=== PATIENT | male | born 1955 | race Caucasian/White ===

== ENCOUNTER 2018-02-07 17:01 | Outpatient (CLI) | payer OTHER ==
[2018-02-07 17:35] LABS: Hemoglobin 14.3 g/dL (14.0-18.0); Mean Corpuscular HGB CONC 32.5 g/dL (32.0-36.0); Mean Corpuscular Hemoglobin 29.3 pg (27.0-31.0); Mean Platelet Volume 6.1 fL (7.4-10.4); Platelet Count 240 thou/uL (130-400); RBC Distribution Width 12.8 % (11.5-14.5); White Blood Cell (WBC) Count 9.9 thou/uL (4.8-10.8)
[2018-02-07 17:57] LABS: Anion Gap 14 mmol/L (10-20); BUN (Urea Nitrogen) 19 mg/dL (8.4-25.7); Calc. Creatinine Clearance 0 mL/min (70-130); Calcium 9.6 mg/dL (7.8-10.44); Carbon Dioxide 26 mmol/L (23-31); Chloride 101 mmol/L (98-107); Estimated GFR-MDRD 86; Glucose 105 mg/dL (80-115); Potassium 4.1 mmol/L (3.5-5.1); Sodium 137 mmol/L (136-145)
--- NOTE | 2018-02-08 14:34 | EKG ---
Test Reason : Blood Pressure : / mmHG Vent. Rate : 064 BPM Atrial Rate : 068 BPM P-R Int : 000 ms QRS Dur : 156 ms QT Int : 466 ms P-R-T Axes : 000 -89 008 degrees QTc Int : 480 ms Atrial fibrillation Left axis deviation Right bundle branch block Left ventricular hypertrophy with QRS widening Inferior infarct , age undetermined Anterior infarct , age undetermined Abnormal ECG When compared with ECG of 24-APR-1999 13:24, Atrial fibrillation has replaced Sinus rhythm Right bundle branch block is now Present Anterior infarct is now Present Inferior infarct is now Present Confirmed by DR. Rosa CAMPOVERDE ([id number]) on 02/08/2018 2:34:02 PM Referred By: JAYDA Confirmed By:DR. Rosa CAMPOVERDE
== END 2018-02-07 17:02 | disposition home or self-care (01) ==
LOC: LABBT 17:01
PROVIDERS: ATTEND Thoracic Surgery (Cardiothoracic Vascular Surgery)
DX: Z01.818 Encounter for other preprocedural examination (principal); I73.9 Peripheral vascular disease, unspecified
CPT/HCPCS: 80048; 85027; 86850; 86870; 86900; 86901; 86905; 86922; 93005; 93010

== ENCOUNTER 2018-02-08 05:54 | Observation (INO) | payer OTHER ==
[2018-02-07 17:07] VITALS: BMI 33.7
[2018-02-08] MEDS ORDERED: CEFAZOLIN/Water 2 GM/20 ML SYRINGE ONE (06:19)
[2018-02-08] MEDS ORDERED: Protamine Sulfate 50 MG/5 ML VIAL ONE (06:29)
[2018-02-08] MEDS ORDERED: Heparin 5,000 UNITS/ML VIAL ONE (06:29)
[2018-02-08] MEDS ORDERED: Fentanyl 250 MCG/5 ML VIAL ONE (07:06)
[2018-02-08] MEDS ORDERED: Midazolam HCl 2 mg/2 ml Vial ONE (07:11)
--- NOTE | 2018-02-08 12:43 | OP ---
DATE OF PROCEDURE: 02/08/2018 PREOPERATIVE DIAGNOSIS: Lifestyle limiting claudication, right leg. POSTOPERATIVE DIAGNOSIS: Lifestyle limiting claudication, right leg. PROCEDURE: Iliofemoral angiography and extended right common and profunda endarterectomy with bovine patch angioplasty. SURGEON: Dr. Radames Spain HOUSING MANAGER: Dr. Yonatan Simon ESTIMATED BLOOD LOSS: 100. FLUOROSCOPY: 1 minute 37 seconds. CONTRAST: 35 mL. PROCEDURE IN DETAIL: After prepping and draping in the usual sterile fashion an incision was made in the right groin after ultrasound localization of the femoral artery. The patient had a rock hard co mmon femoral artery with a soft spot just at the inguinal ligament where the medial circumflex vessel took off from the junction of the external iliac and common femoral artery. Extensive mobilization was carried out from there distally to about 2 cm from the origin of the SFA as well as the major pro jose branches. The calcification extended down the posterior wall of the profunda branches. Follow ing this, 7500 units of heparin were given, needle puncture of the common femoral artery at the ingui nal ligament, a 5-Uzbek dilator and sheath were placed. Retrograde angiography was initially perfor med showing no significant external or distal common iliac artery disease. The retrograde injection did not clearly show the common femoral artery and a Contra catheter was then advanced into the aorta and 3 separate images were obtained demonstrating with no significant or critical disease in the com mon iliac arteries. There was clearly calcified plaque, but flow appeared to be brisk. At that time , it was elected to just perform the common femoral artery endarterectomy and avoid stenting during t his procedure. Clamps were applied to the groin vessels and a long arteriotomy performed. There wer e two areas of near occlusive calcified plaque and a full endarterectomy was performed extending down about 2 cm onto the profunda femoral artery. Incision was made also onto the orifice of the superfi cial femoral artery. A bovine patch was then used to secure this vessel from the proximal extent of the common femoral arteriotomy down onto the tip of the profunda femoral arteriotomy. A separate pat ch was then used to patch the origin of the superficial femoral artery. Following completion of this , vessels were back flushed and forward flushed and the area thoroughly irrigated with heparin saline and flow then restored down the profunda and then superficial femoral artery. Following a prolonged period of FloSeal and compression with the partial reversal of the heparin, hemostasis was obtained. The wound was then closed in several layers with interrupted [id number] Vicryl sutures. Skin was then closed and the patient is to be taken to the recovery room in guarded condition.
[2018-02-08] MEDS ORDERED: Glycopyrrolate 0.2 MG/ML 5 ML SYRINGE ONE (13:45)
[2018-02-08] MEDS ORDERED: Lidocaine 1% PF 5 ML VIAL ONE (13:45)
[2018-02-08] MEDS ORDERED: Dexamethasone 20 MG/5 ML VIAL ONE (13:45)
[2018-02-08] MEDS ORDERED: PROPOFOL 200 MG/20 ML VIAL ONE (13:45)
[2018-02-08] MEDS ORDERED: PHENYLEPHRINE-NS 100 MCG/ML 10 ML SYRINGE ONE (13:45)
[2018-02-08] MEDS ORDERED: Heparin 10,000 UNITS/ 10 ML VIAL ONE (13:45)
[2018-02-08] MEDS ORDERED: ePHEDrine/0.9% NaCl/PF SYRINGE 50 mg/10 ml ONE (13:45)
[2018-02-08] MEDS ORDERED: Acetaminophen 325 MG TAB PO PRN (13:52)
[2018-02-08] MEDS ORDERED: Sodium Chloride 0.9% 1,000 ML IV SCH (13:52)
[2018-02-08] MEDS ORDERED: Promethazine HCl 25 MG/ML VIAL IM PRN (13:52)
[2018-02-08] MEDS ORDERED: HYDROcodone/Acetaminophen 5/325 mg Tablet PO PRN ×2 (13:52)
[2018-02-08] MEDS ORDERED: Ondansetron HCl/PF 4 MG/2 ML Vial IVP PRN (13:52)
[2018-02-08] MEDS ORDERED: Fentanyl 100 MCG/2 ML VIAL SLOW IVP PRN ×2 (13:52)
[2018-02-08] MEDS: CEFAZOLIN/Water 2 GM/20 ML SYRINGE SLOW IVP SCH ×2 (16:08→21:59)
[2018-02-08] MEDS ORDERED: LINAGLIPTIN PO SCH (17:00)
[2018-02-08] MEDS ORDERED: METFORMIN HCL PO SCH (17:00)
[2018-02-08] MEDS: Insulin Regular 300 UNITS/3 ML VIAL SC PRN ×2 (18:07→21:25)
[2018-02-08] MEDS ORDERED: Rosuvastatin 20 MG TAB PO SCH (21:00)
[2018-02-09] MEDS: CEFAZOLIN/Water 2 GM/20 ML SYRINGE SLOW IVP SCH (06:11)
--- NOTE | 2018-02-09 06:18 | DIS ---
HOSPITAL COURSE: The patient was admitted for a right femoral endarterectomy, which was performed. He underwent intraoperative angiography to assess his common iliac arteries and at the time of angiog yady, it was not felt that the stenosis was critical enough to warrant intervention at this time. P ostoperative course was uneventful and he will be discharged home on his admitting medications plus a prescription for Plavix 75 a day. Discharge and follow up instructions have been given.
[2018-02-09] MEDS ORDERED: metFORMIN 500 MG TAB PO SCH (08:00)
[2018-02-09 08:18] VITALS: BP 126/74; TEMP 98.9
[2018-02-09] MEDS ORDERED: Clopidogrel Bisulfate 75 MG TAB PO SCH (09:00)
[2018-02-09] MEDS ORDERED: Glimepiride 4 MG TAB PO SCH (09:00)
[2018-02-09] MEDS ORDERED: Valsartan 80 MG TAB PO SCH (21:00)
== END 2018-02-09 09:23 | disposition home or self-care (01) ==
LOC: SDC 05:54 → SURG A 12:40 → EDSTATUS 16:30
PROVIDERS: ADMIT Thoracic Surgery (Cardiothoracic Vascular Surgery); ATTEND Thoracic Surgery (Cardiothoracic Vascular Surgery)
PROC: 04CK0ZZ Extirpation of Matter from Right Femoral Artery, Open Approach (ICD-10-PCS; principal; 2018-02-09)
DX: I70.211 Atherosclerosis of native arteries of extremities with intermittent claudication, right leg (principal); I25.10 Atherosclerotic heart disease of native coronary artery without angina pectoris; E78.5 Hyperlipidemia, unspecified; E11.9 Type 2 diabetes mellitus without complications; Z88.5 Allergy status to narcotic agent; Z79.82 Long term (current) use of aspirin; Z79.84 Long term (current) use of oral hypoglycemic drugs
CPT/HCPCS: 36416; 76001; 96374; 96376; G0378; J1100; J1642; J1644; J2001; J2250; J2704; J2720; J3010

== ENCOUNTER 2018-10-20 18:57 | Day surgery (SDC) | payer OTHER ==
[~2018-10-20 18:57] MED LIST: Lidocaine 1% PF 5 ML VIAL ONE; PHENYLEPHRINE-NS 100 MCG/ML 10 ML SYRINGE ONE; PROPOFOL 200 MG/20 ML VIAL ONE
[2018-10-20] MEDS ORDERED: Bacitracin Zinc Ointment 30 gm TUBE ONE (19:05)
[2018-10-20] MEDS ORDERED: Sodium Chloride 0.9% 10 ML ONE (19:06)
[2018-10-20] MEDS ORDERED: Lidocaine 1% (PF) 30 ML VIAL ONE (19:11)
[2018-10-20] MEDS ORDERED: Bupivacaine PF 0.5% 30 ML VIAL ONE (19:11)
[2018-10-20] MEDS ORDERED: Thrombin 5000 UNITS/5 ML VIAL ONE (19:11)
[2018-10-20] MEDS ORDERED: Sodium Chloride 0.9% 20 ML ONE (19:44)
[2018-10-20] MEDS ORDERED: Fentanyl 100 MCG/2 ML VIAL ONE (19:56)
[2018-10-20] MEDS ORDERED: Midazolam HCl 2 mg/2 ml Vial ONE (19:56)
[2018-10-20] MEDS ORDERED: Vancomycin HCl 1.5 GM in Sodium Chloride 0.9% 250 ML 300 ML IVPB SCH (20:00)
[2018-10-20] MEDS ORDERED: CEFAZOLIN 2 GM/50 ML-DEXTROSE 2 GM in Premix Bag 1 BAG IVPB SCH (20:00)
[2018-10-20] MEDS ORDERED: Ketorolac Tromethamine 30 MG/ML VIAL ONE (21:02)
--- NOTE | 2018-10-21 08:42 | RAD ---
TWO VIEWS RIGHT FINGERS: DATE: 10/20/2018. PROVIDED CLINICAL HISTORY: Right finger biopsy. FINDINGS: Spot fluoroscopic images of the right long digit demonstrate ongoing operative changes involving the distal phalanx. IMPRESSION: As above. POS: OFF
--- NOTE | 2018-10-21 11:32 | OP ---
DATE OF PROCEDURE: 10/20/2018 PREOPERATIVE DIAGNOSIS: Osteomyelitis with abscess, gross infection, soft tissue and distal phalanx. POSTOPERATIVE DIAGNOSIS: Osteomyelitis with abscess, gross infection, soft tissue and distal phalanx, marked severe tip and proximal one-third osteomyelitis with soft tissue abscess around the bone. PROCEDURE PERFORMED: 1. Drainage of abscess, right middle finger distal phalanx. 2. Bone cortical resection for osteomyelitis distal phalanx, right middle finger. 3. Arthrotomy, distal interphalangeal joint with joint irrigation. 4. C-arm supervision. SPECIMENS: 1. Bone . 2. Cortical abscess for culture. 3. Skin wound for culture. 4. Bone specimen to pathology. TOURNIQUET TIME: 8 minutes. ESTIMATED BLOOD LOSS: 15 mL. INDICATION: The patient with an accidental injury to the same finger in May and then this well subsided, but approximately one month ago, noticed return of swelling at a different site, tip finger drainage over the last 3-4 days with fusiform swelling and erythema, prompted a visit to his primary care. We then performed radiographs and workup to determine probable osteomyelitis. He was transferred to our clinic today at the end of the day, where we found him to have at least subacute and chronic osteomyelitis, but he had an acute abscess which needed drainage, so we brought him to the hospital for emergent drainage of the abscess and at the same time we would deal with any bony changes now. DESCRIPTION OF PROCEDURE: After successful block, with a 15 mL of 0.5% Marcaine mix with 10 mL of 1% xylocaine, both with no epi, we performed successful block waiting 8 minutes after it was given before we starting the surgery. We outlined a periungual basil-digit incision on the radial side of the long finger and first they removed with the sinus tract, which was sent for culture. Next, we debrided the skin around the sinus tract and followed the tendons down deep where we debrided the synovitis including small hematoma. At this point, we visualized the bone from the same paramedian incision and it was grossly infected, with penciling of the cortex and so went inside the bone cortex to drain it as well as open the joint with a mini-arthrotomy and drain this as well. We irrigated the joint and the bone specifically separate and we were able to complete the debridement without complications. The patient then had the irrigation completed, we obtained hemostasis, put him in a bulky dressing, and the patient left the operating room without evidence of anesthetic complication. Job ID: [id number]
== END 2018-10-20 22:43 | disposition home or self-care (01) ==
LOC: SDC 18:57
PROVIDERS: ATTEND Orthopaedic Surgery Hand Surgery
PROC: 0PBT0ZZ Excision of Right Finger Phalanx, Open Approach (ICD-10-PCS; principal; 2018-10-20)
DX: E11.69 Type 2 diabetes mellitus with other specified complication (principal); M86.141 Other acute osteomyelitis, right hand; M86.241 Subacute osteomyelitis, right hand; M86.441 Chronic osteomyelitis with draining sinus, right hand; B95.61 Methicillin susceptible Staphylococcus aureus infection as the cause of diseases classified elsewhere; B95.7 Other staphylococcus as the cause of diseases classified elsewhere; B95.4 Other streptococcus as the cause of diseases classified elsewhere; B96.89 Other specified bacterial agents as the cause of diseases classified elsewhere; M65.141 Other infective (teno)synovitis, right hand; F17.200 Nicotine dependence, unspecified, uncomplicated; E78.00 Pure hypercholesterolemia, unspecified; I10 Essential (primary) hypertension; Z79.82 Long term (current) use of aspirin; Z79.84 Long term (current) use of oral hypoglycemic drugs; Z79.899 Other long term (current) drug therapy; Z88.5 Allergy status to narcotic agent; Z95.1 Presence of aortocoronary bypass graft; Z96.652 Presence of left artificial knee joint; W26.0XXA Contact with knife, initial encounter
CPT/HCPCS: 36415; 76000; 80048; 85025; 85610; 85652; 85730; 87070; 87076; 87077; 87186; 87205; 88307; 88311; J1885; J2001; J2250; J2704; J3010; J3370; J3490; J7050; S0020

== ENCOUNTER 2023-01-28 08:03 | Day surgery (SDC) | payer MEDICARE, OTHER ==
[2023-01-27 12:11] VITALS: BMI 29.4
[2023-01-28] MEDS ORDERED: Heparin 10,000 UNITS/ 10 ML VIAL ONE ×2 (09:20→12:56)
[2023-01-28] MEDS ORDERED: Heparin 25,000 units/D5W 500 ML ONE (09:20)
[2023-01-28] MEDS ORDERED: fentaNYL 50 mcg/mL 1 mL Vial ONE (10:19)
[2023-01-28] MEDS ORDERED: Ondansetron PF 4 MG/2 ML Vial ONE (10:50)
[2023-01-28] MEDS ORDERED: Rocuronium Bromide 10 MG/ML (10ML VIAL) ONE (10:50)
[2023-01-28] MEDS ORDERED: PHENYLEPHRINE-NS 100 MCG/ML 10 ML SYRINGE ONE (10:50)
[2023-01-28] MEDS ORDERED: Lidocaine 1% PF 5 ML VIAL ONE (10:50)
[2023-01-28] MEDS ORDERED: Protamine Sulfate 50 MG/5 ML VIAL ONE (13:43)
[2023-01-28] MEDS ORDERED: SUGAMMADEX SODIUM 200 MG/2 ML VIAL ONE (13:43)
== END 2023-01-28 17:30 | disposition home or self-care (01) ==
LOC: SDC 08:03
PROVIDERS: ATTEND Internal Medicine Cardiovascular Disease
PROC: B246ZZ4 Ultrasonography of Right and Left Heart, Transesophageal (ICD-10-PCS; principal; 2023-01-28)
PROC: 02583ZZ Destruction of Conduction Mechanism, Percutaneous Approach (ICD-10-PCS; 2023-01-28)
PROC: 02K83ZZ Map Conduction Mechanism, Percutaneous Approach (ICD-10-PCS; 2023-01-28)
PROC: 4A023FZ Measurement of Cardiac Rhythm, Percutaneous Approach (ICD-10-PCS; 2023-01-28)
PROC: 4A0234Z Measurement of Cardiac Electrical Activity, Percutaneous Approach (ICD-10-PCS; 2023-01-28)
DX: I48.19 Other persistent atrial fibrillation (principal); I48.4 Atypical atrial flutter; I08.1 Rheumatic disorders of both mitral and tricuspid valves; I25.5 Ischemic cardiomyopathy; I11.0 Hypertensive heart disease with heart failure; I50.42 Chronic combined systolic (congestive) and diastolic (congestive) heart failure; I25.10 Atherosclerotic heart disease of native coronary artery without angina pectoris; E78.2 Mixed hyperlipidemia; E11.9 Type 2 diabetes mellitus without complications; M19.90 Unspecified osteoarthritis, unspecified site; E03.9 Hypothyroidism, unspecified; Z87.891 Personal history of nicotine dependence; Z79.01 Long term (current) use of anticoagulants; Z79.82 Long term (current) use of aspirin; Z79.84 Long term (current) use of oral hypoglycemic drugs; Z79.890 Hormone replacement therapy; Z79.899 Other long term (current) drug therapy; Z88.5 Allergy status to narcotic agent; Z95.1 Presence of aortocoronary bypass graft; Z95.810 Presence of automatic (implantable) cardiac defibrillator
CPT/HCPCS: 82962; 93005; 93312; 93655; 93656; 93657; J3010; 36416; C1732; C1759; C1760; C1769; C1894; C2630; J1644; J2405; J2720

== ENCOUNTER 2023-05-12 12:09 | Day surgery (SDC) | payer MEDICARE, OTHER ==
[2023-05-12 12:14] LABS: #Basophils 0.1 thou/uL (0.0-0.2); #Eosinphils 0.2 thou/uL (0.0-0.7); #Monocytes 0.6 thou/uL (0.11-0.59); #Neutrophils 4.8 thou/uL (1.40-6.50); %Basophils 0.7 % (0.0-1.0); %Eosinophils 2.2 % (0.0-10.0); %Lymphocytes 17.8 % (21.0-51.0); %Monocytes 8.5 % (0.0-10.0); %Neutrophils 70.4 % (42.0-75.0); Hematocrit 37.9 % (42.0-52.0); Hemoglobin 11.8 g/dL (14.0-18.0); Mean Corpuscular HGB CONC 31.1 g/dL (32.0-36.0); Mean Corpuscular Hemoglobin 30.6 pg (27.0-31.0); Mean Corpuscular Volume 98.2 fl (78.0-98.0); Mean Platelet Volume 9.2 fL (7.4-10.4); Platelet Count 169 10x3/uL (130-400); RBC Distribution Width 16.5 % (11.5-14.5); Red Blood Cell (RBC) Count 3.86 mill/uL (4.70-6.10); White Blood Cell (WBC) Count 6.8 10x3/uL (4.8-10.8)
[2023-05-12 12:26] LABS: INR-International Normal Ratio 1.3; PTT 35.6 sec (22.9-36.1); Prothrombin Time 17.1 sec (12.0-14.7)
[2023-05-12] MEDS ORDERED: Lidocaine 1% PF 5 ML VIAL ONE (12:31)
[2023-05-12] MEDS ORDERED: Sodium Bicarbonate 2.5 MEQ/5 ML VIAL ONE (12:31)
[2023-05-12 13:46] VITALS: BP 116/64; TEMP 98.6
== END 2023-05-12 13:30 | disposition home or self-care (01) ==
LOC: ULT 12:09
PROVIDERS: ATTEND Specialist
DX: R18.8 Other ascites (principal)
CPT/HCPCS: 49083; 85025; 85610; 85730

== ENCOUNTER 2023-09-08 11:03 | Emergency (ER) | payer MEDICARE, OTHER ==
[2023-09-08 11:37] LABS: #Eosinphils 0.1 thou/uL (0.0-0.7); #Monocytes 0.5 thou/uL (0.11-0.59); #Neutrophils 4.2 thou/uL (1.40-6.50); %Basophils 0.7 % (0.0-1.0); %Lymphocytes 11.4 % (21.0-51.0); %Monocytes 8.6 % (0.0-10.0); %Neutrophils 76.9 % (42.0-75.0); Hematocrit 37.9 % (42.0-52.0); Hemoglobin 12.1 g/dL (14.0-18.0); Mean Corpuscular HGB CONC 31.9 g/dL (32.0-36.0); Mean Corpuscular Hemoglobin 31.7 pg (27.0-31.0); Mean Corpuscular Volume 99.2 fl (78.0-98.0); Mean Platelet Volume 10.1 fL (7.4-10.4); Platelet Count 161 10x3/uL (130-400); RBC Distribution Width 16.9 % (11.5-14.5); Red Blood Cell (RBC) Count 3.82 mill/uL (4.70-6.10); White Blood Cell (WBC) Count 5.5 10x3/uL (4.8-10.8)
[2023-09-08 12:01] LABS: ALT (SGPT) 13 U/L (8-55); AST (SGOT) 21 U/L (5-34); Albumin 4.1 g/dL (3.4-4.8); Alkaline Phosphatase 87 U/L (40-110); Anion Gap 16 mmol/L (10-20); BUN (Urea Nitrogen) 51 mg/dL (8.4-25.7); Bilirubin, Total 1.1 mg/dL (0.2-1.2); Calc. Creatinine Clearance 0 mL/min (70-130); Calcium 9.1 mg/dL (7.8-10.44); Carbon Dioxide 20 mmol/L (23-31); Chloride 104 mmol/L (98-107); Estimated GFR 19; Globulin 2.8 g/dL (2.4-3.5); Glucose 181 mg/dL (80-115); Potassium 5.3 mmol/L (3.5-5.1); Protein, Total 6.9 g/dL (5.8-8.1); Sodium 135 mmol/L (136-145)
[2023-09-08 12:04] LABS: Troponin I 0.192 ng/mL (< 0.028)
[2023-09-08 12:13] LABS: INR-International Normal Ratio 1.5; Prothrombin Time 18.9 sec (12.0-14.7)
[2023-09-08 12:14] LABS: PTT 36.9 sec (22.9-36.1)
[2023-09-08] MEDS ORDERED: Albumin 25% 25 GM/100 ML BOT IVPB SCH (14:30)
== END 2023-09-08 16:51 | disposition home or self-care (01) ==
LOC: ERS 11:03
DX: R18.8 Other ascites (principal); E11.9 Type 2 diabetes mellitus without complications; I10 Essential (primary) hypertension; Z79.890 Hormone replacement therapy; Z79.01 Long term (current) use of anticoagulants
CPT/HCPCS: 80053; 84484; 85025; 85610; 85730; 87070; 87205; 93005; 96365; 96366; 99284; P9047

== ENCOUNTER 2023-09-23 07:32 | Day surgery (SDC) | payer MEDICARE, OTHER ==
[2023-09-23] MEDS ORDERED: Sodium Bicarbonate 2.5 MEQ/5 ML VIAL ONE (07:46)
[2023-09-23] MEDS ORDERED: Lidocaine 1% PF 5 ML VIAL ONE (07:46)
[2023-09-23] MEDS ORDERED: Albumin 25% 200 ML ONE (07:46)
[2023-09-23 08:40] LABS: Anion Gap 15 mmol/L (10-20); BUN (Urea Nitrogen) 54 mg/dL (8.4-25.7); Calc. Creatinine Clearance 0 mL/min (70-130); Carbon Dioxide 23 mmol/L (23-31); Chloride 104 mmol/L (98-107); Estimated GFR 19; Glucose 146 mg/dL (80-115); Potassium 4.7 mmol/L (3.5-5.1); Sodium 137 mmol/L (136-145)
[2023-09-23 09:35] VITALS: BP 119/74; TEMP 98.6
[2023-09-23] MEDS ORDERED: FLU VACC QS2023(65UP)/MF59C/PF 60 MCG/0.5 ML SYRINGE IM ONE (10:45)
== END 2023-09-23 09:20 | disposition home or self-care (01) ==
LOC: ULT 07:32
PROVIDERS: ATTEND Physician Assistant Medical
PROC: 0W9G30Z Drainage of Peritoneal Cavity with Drainage Device, Percutaneous Approach (ICD-10-PCS; principal; 2023-09-23)
DX: R18.8 Other ascites (principal); N18.9 Chronic kidney disease, unspecified; Z88.5 Allergy status to narcotic agent
CPT/HCPCS: 49083; 80048; P9047

== ENCOUNTER → 2023-10-21 | Day surgery (SDC) | payer MEDICARE, OTHER ==
[~2023-10-21] MED LIST changes: +Albumin 25% 0 ML ONE; +Albumin 25% 200 ML ONE; -PHENYLEPHRINE-NS 100 MCG/ML 10 ML SYRINGE ONE; -PROPOFOL 200 MG/20 ML VIAL ONE; +Sodium Bicarbonate 0.5 MEQ/ML SDV 10 ML ONE
[2023-10-21 09:06] LABS: #Basophils 0.1 thou/uL (0.0-0.2); #Eosinphils 0.2 thou/uL (0.0-0.7); #Monocytes 0.7 thou/uL (0.11-0.59); #Neutrophils 4.3 thou/uL (1.40-6.50); %Eosinophils 2.6 % (0.0-10.0); %Lymphocytes 13.6 % (21.0-51.0); %Monocytes 11.7 % (0.0-10.0); %Neutrophils 70.9 % (42.0-75.0); Hematocrit 38.9 % (42.0-52.0); Hemoglobin 12.2 g/dL (14.0-18.0); Mean Corpuscular HGB CONC 31.4 g/dL (32.0-36.0); Mean Corpuscular Hemoglobin 30.7 pg (27.0-31.0); Mean Platelet Volume 11.4 fL (7.4-10.4); Platelet Count 209 10x3/uL (130-400); RBC Distribution Width 15.3 % (11.5-14.5); Red Blood Cell (RBC) Count 3.97 mill/uL (4.70-6.10); White Blood Cell (WBC) Count 6.1 10x3/uL (4.8-10.8)
[2023-10-21 10:31] LABS: INR-International Normal Ratio 1.6; PTT 38.5 sec (22.9-36.1); Prothrombin Time 18.8 sec (12.0-14.7)
[2023-10-21 10:46] LABS: Anion Gap 13 mmol/L (10-20); BUN (Urea Nitrogen) 40 mg/dL (8.4-25.7); Calc. Creatinine Clearance 0 mL/min (70-130); Calcium 8.6 mg/dL (7.8-10.44); Carbon Dioxide 26 mmol/L (23-31); Chloride 103 mmol/L (98-107); Estimated GFR 20; Glucose 118 mg/dL (80-115); Potassium 4.5 mmol/L (3.5-5.1); Sodium 137 mmol/L (136-145)
== END ==
LOC: ULT 07:42
PROVIDERS: ATTEND Physician Assistant Medical
PROC: 0W9G30Z Drainage of Peritoneal Cavity with Drainage Device, Percutaneous Approach (ICD-10-PCS; principal; 2023-10-21)
DX: R18.8 Other ascites (principal); N18.9 Chronic kidney disease, unspecified
CPT/HCPCS: 49083; 80048; 85025; 85610; 85730; P9047; 36415

== ENCOUNTER 2023-11-04 07:49 | Day surgery (SDC) | payer MEDICARE, OTHER ==
[2023-11-04] MEDS ORDERED: Lidocaine 1% PF 5 ML VIAL ONE (08:05)
[2023-11-04] MEDS ORDERED: Sodium Bicarbonate 2.5 MEQ/5 ML SDV ONE (08:05)
[2023-11-04] MEDS ORDERED: Albumin 25% 200 ML ONE (08:05)
[2023-11-04 10:16] LABS: Anion Gap 13 mmol/L (10-20); BUN (Urea Nitrogen) 48 mg/dL (8.4-25.7); Calc. Creatinine Clearance 0 mL/min (70-130); Calcium 8.8 mg/dL (7.8-10.44); Carbon Dioxide 24 mmol/L (23-31); Chloride 103 mmol/L (98-107); Estimated GFR 22; Glucose 116 mg/dL (80-115); Potassium 4.3 mmol/L (3.5-5.1); Sodium 136 mmol/L (136-145)
[2023-11-04 11:55] VITALS: BP 113/73; TEMP 98.2
== END 2023-11-04 10:30 | disposition home or self-care (01) ==
LOC: ULT 07:49
PROVIDERS: ATTEND Physician Assistant Medical
PROC: 0W9G3ZZ Drainage of Peritoneal Cavity, Percutaneous Approach (ICD-10-PCS; principal; 2023-11-04)
DX: R18.8 Other ascites (principal); Z88.5 Allergy status to narcotic agent
CPT/HCPCS: 49083; 80048; P9047

== ENCOUNTER → 2023-11-18 | Day surgery (SDC) | payer MEDICARE, OTHER ==
[~2023-11-18] MED LIST changes: -Albumin 25% 0 ML ONE; -Sodium Bicarbonate 0.5 MEQ/ML SDV 10 ML ONE; +Sodium Bicarbonate 2.5 MEQ/5 ML SDV ONE
[2023-11-18 09:35] LABS: Anion Gap 13 mmol/L (10-20); BUN (Urea Nitrogen) 41 mg/dL (8.4-25.7); Calc. Creatinine Clearance 0 mL/min (70-130); Calcium 8.7 mg/dL (7.8-10.44); Carbon Dioxide 22 mmol/L (23-31); Chloride 105 mmol/L (98-107); Estimated GFR 24; Glucose 116 mg/dL (80-115); Potassium 3.9 mmol/L (3.5-5.1); Sodium 136 mmol/L (136-145)
== END ==
LOC: ULT 07:52
PROVIDERS: ATTEND Physician Assistant Medical
PROC: 0W9G3ZZ Drainage of Peritoneal Cavity, Percutaneous Approach (ICD-10-PCS; principal; 2023-11-18)
DX: R18.8 Other ascites (principal); Z88.5 Allergy status to narcotic agent
CPT/HCPCS: 49083; 80048; P9047

== ENCOUNTER 2023-12-02 07:49 | Day surgery (SDC) | payer MEDICARE, OTHER ==
[2023-12-02] MEDS ORDERED: Albumin 25% 200 ML ONE (08:05)
[2023-12-02] MEDS ORDERED: Sodium Bicarbonate 2.5 MEQ/5 ML SDV ONE (08:06)
[2023-12-02] MEDS ORDERED: Lidocaine 1% PF 5 ML VIAL ONE ×2 (08:06→09:04)
[2023-12-02 08:32] LABS: #Basophils 0.1 thou/uL (0.0-0.2); #Eosinphils 0.4 thou/uL (0.0-0.7); #Monocytes 0.7 thou/uL (0.11-0.59); #Neutrophils 7.3 thou/uL (1.40-6.50); %Basophils 0.9 % (0.0-1.0); %Eosinophils 4.7 % (0.0-10.0); %Lymphocytes 8.8 % (21.0-51.0); %Monocytes 7.7 % (0.0-10.0); %Neutrophils 77.7 % (42.0-75.0); Hematocrit 39.8 % (42.0-52.0); Hemoglobin 12.3 g/dL (14.0-18.0); Mean Corpuscular HGB CONC 30.9 g/dL (32.0-36.0); Mean Corpuscular Hemoglobin 29.8 pg (27.0-31.0); Mean Corpuscular Volume 96.4 fl (78.0-98.0); Mean Platelet Volume 8.6 fL (7.4-10.4); Platelet Count 227 10x3/uL (130-400); RBC Distribution Width 14.7 % (11.5-14.5); Red Blood Cell (RBC) Count 4.13 mill/uL (4.70-6.10); White Blood Cell (WBC) Count 9.4 10x3/uL (4.8-10.8)
[2023-12-02 08:52] LABS: INR-International Normal Ratio 1.3; Prothrombin Time 16.2 sec (12.0-14.7)
[2023-12-02 08:58] LABS: Anion Gap 13 mmol/L (10-20); BUN (Urea Nitrogen) 43 mg/dL (8.4-25.7); Calc. Creatinine Clearance 0 mL/min (70-130); Calcium 9.1 mg/dL (7.8-10.44); Carbon Dioxide 27 mmol/L (23-31); Chloride 102 mmol/L (98-107); Estimated GFR 23; Glucose 136 mg/dL (80-115); Potassium 4.9 mmol/L (3.5-5.1); Sodium 137 mmol/L (136-145)
[2023-12-02 09:17] VITALS: BP 109/70; TEMP 98.1
== END 2023-12-02 09:30 | disposition home or self-care (01) ==
LOC: ULT 07:49
PROVIDERS: ATTEND Physician Assistant Medical
PROC: 0W9G3ZZ Drainage of Peritoneal Cavity, Percutaneous Approach (ICD-10-PCS; principal; 2023-12-02)
DX: R18.8 Other ascites (principal); Z88.5 Allergy status to narcotic agent
CPT/HCPCS: 49083; 80048; 85025; 85610; P9047

== ENCOUNTER 2023-12-16 07:38 | Day surgery (SDC) | payer MEDICARE, OTHER ==
[2023-12-16] MEDS ORDERED: Sodium Bicarbonate 2.5 MEQ/5 ML SDV ONE (07:42)
[2023-12-16] MEDS ORDERED: Lidocaine 1% PF 5 ML VIAL ONE (07:42)
[2023-12-16] MEDS ORDERED: Albumin 25% 200 ML ONE (07:47)
[2023-12-16 08:48] LABS: Anion Gap 16 mmol/L (10-20); BUN (Urea Nitrogen) 42 mg/dL (8.4-25.7); Calc. Creatinine Clearance 0 mL/min (70-130); Calcium 8.9 mg/dL (7.8-10.44); Carbon Dioxide 26 mmol/L (23-31); Chloride 98 mmol/L (98-107); Estimated GFR 23; Glucose 92 mg/dL (80-115); Potassium 4.2 mmol/L (3.5-5.1); Sodium 136 mmol/L (136-145)
[2023-12-16 09:13] VITALS: BP 109/64; TEMP 97.4
== END 2023-12-16 09:05 | disposition home or self-care (01) ==
LOC: ULT 07:38
PROVIDERS: ATTEND Physician Assistant Medical
PROC: 0W9G3ZZ Drainage of Peritoneal Cavity, Percutaneous Approach (ICD-10-PCS; principal; 2023-12-16)
DX: R18.8 Other ascites (principal); Z88.5 Allergy status to narcotic agent
CPT/HCPCS: 49083; 80048; P9047

== ENCOUNTER 2023-12-30 07:41 | Day surgery (SDC) | payer MEDICARE, OTHER ==
[2023-12-30] MEDS ORDERED: Sodium Bicarbonate 2.5 MEQ/5 ML SDV ONE (07:56)
[2023-12-30] MEDS ORDERED: Lidocaine 1% PF 5 ML VIAL ONE (07:56)
[2023-12-30] MEDS ORDERED: Albumin 25% 200 ML ONE (07:56)
[2023-12-30 09:58] LABS: Anion Gap 16 mmol/L (10-20); BUN (Urea Nitrogen) 50 mg/dL (8.4-25.7); Calc. Creatinine Clearance 37 mL/min (70-130); Calcium 8.8 mg/dL (7.8-10.44); Carbon Dioxide 25 mmol/L (23-31); Chloride 98 mmol/L (98-107); Estimated GFR 23; Glucose 71 mg/dL (80-115); Potassium 4.5 mmol/L (3.5-5.1); Sodium 134 mmol/L (136-145)
== END 2023-12-30 10:20 | disposition home or self-care (01) ==
LOC: ULT 07:41
PROVIDERS: ATTEND Physician Assistant Medical
PROC: 0W9G30Z Drainage of Peritoneal Cavity with Drainage Device, Percutaneous Approach (ICD-10-PCS; principal; 2023-12-30)
DX: R18.8 Other ascites (principal); N18.9 Chronic kidney disease, unspecified; Z88.5 Allergy status to narcotic agent
CPT/HCPCS: 49083; 80048; P9047

== ENCOUNTER 2024-02-10 07:45 | Day surgery (SDC) | payer MEDICARE, OTHER ==
[2024-02-10] MEDS ORDERED: Albumin 25% 200 ML ONE (08:02)
[2024-02-10] MEDS ORDERED: Lidocaine 1% PF 5 ML VIAL ONE (08:03)
[2024-02-10] MEDS ORDERED: Sodium Bicarbonate 2.5 MEQ/5 ML SDV ONE (08:03)
[2024-02-10 09:25] VITALS: BP 113/67; TEMP 98.6
[2024-02-10 09:53] LABS: Anion Gap 17 mmol/L (10-20); BUN (Urea Nitrogen) 39 mg/dL (8.4-25.7); Calc. Creatinine Clearance 43 mL/min (70-130); Calcium 8.9 mg/dL (7.8-10.44); Carbon Dioxide 25 mmol/L (23-31); Chloride 100 mmol/L (98-107); Estimated GFR 28; Glucose 76 mg/dL (80-115); Potassium 4.2 mmol/L (3.5-5.1); Sodium 138 mmol/L (136-145)
== END 2024-02-10 09:25 | disposition home or self-care (01) ==
LOC: ULT 07:45
PROVIDERS: ATTEND Physician Assistant Medical
PROC: 0W9G30Z Drainage of Peritoneal Cavity with Drainage Device, Percutaneous Approach (ICD-10-PCS; principal; 2024-02-10)
DX: R18.8 Other ascites (principal); N18.9 Chronic kidney disease, unspecified; L02.511 Cutaneous abscess of right hand
CPT/HCPCS: 49083; 80048; P9047

== ENCOUNTER 2024-02-24 07:47 | Day surgery (SDC) | payer MEDICARE, OTHER ==
[2024-02-24] MEDS ORDERED: Lidocaine 1% PF 5 ML VIAL ONE (07:58)
[2024-02-24] MEDS ORDERED: Albumin 25% 200 ML ONE (07:58)
[2024-02-24] MEDS ORDERED: Sodium Bicarbonate 2.5 MEQ/5 ML SDV ONE (07:59)
[2024-02-24 09:44] LABS: #Basophils 0.06 10x3/uL (0.0-0.2); %Eosinophils 4.4 % (0.0-10.0); %Lymphocytes 12.9 % (21.0-51.0); %Monocytes 11.7 % (0.0-10.0); %Neutrophils 69.8 % (42.0-75.0); Hematocrit 41.9 % (42.0-52.0); Hemoglobin 13.1 g/dL (14.0-18.0); Mean Corpuscular HGB CONC 31.3 g/dL (32.0-36.0); Mean Corpuscular Hemoglobin 28.1 pg (27.0-31.0); Mean Corpuscular Volume 89.7 fL (78.0-98.0); Mean Platelet Volume 10.1 fL (7.4-10.4); Platelet Count 181 10x3/uL (130-400); RBC Distribution Width 15.3 % (11.5-14.5); Red Blood Cell (RBC) Count 4.67 mill/uL (4.70-6.10)
[2024-02-24 10:04] LABS: ALT (SGPT) 6 U/L (8-55); AST (SGOT) 20 U/L (5-34); Albumin 3.1 g/dL (3.4-4.8); Alkaline Phosphatase 96 U/L (40-110); Anion Gap 13 mmol/L (10-20); BUN (Urea Nitrogen) 42 mg/dL (8.4-25.7); Bilirubin, Total 1.3 mg/dL (0.2-1.2); Calc. Creatinine Clearance 0 mL/min (70-130); Calcium 9.1 mg/dL (7.8-10.44); Carbon Dioxide 27 mmol/L (23-31); Chloride 101 mmol/L (98-107); Estimated GFR 29; Globulin 3.2 g/dL (2.4-3.5); Glucose 75 mg/dL (80-115); Potassium 3.9 mmol/L (3.5-5.1); Protein, Total 6.3 g/dL (5.8-8.1); Sodium 137 mmol/L (136-145)
[2024-02-24 10:05] LABS: INR-International Normal Ratio 1.4; Prothrombin Time 17.4 sec (12.0-14.7)
[2024-02-24 10:06] LABS: PTT 39.5 sec (22.9-36.1)
[2024-02-24 10:56] VITALS: BP 107/66; TEMP 97
== END 2024-02-24 10:30 | disposition home or self-care (01) ==
LOC: ULT 07:47
PROVIDERS: ATTEND Physician Assistant Medical
PROC: 0W9G3ZZ Drainage of Peritoneal Cavity, Percutaneous Approach (ICD-10-PCS; principal; 2024-02-24)
DX: R18.8 Other ascites (principal); N18.9 Chronic kidney disease, unspecified; Z88.5 Allergy status to narcotic agent
CPT/HCPCS: 49083; 80053; 85025; 85610; 85730; P9047

== ENCOUNTER 2024-03-01 15:02 | Day surgery (SDC) | payer MEDICARE, OTHER ==
[2024-03-01] MEDS ORDERED: Lidocaine 1% PF 5 ML VIAL ONE (15:24)
== END 2024-03-01 17:10 | disposition home or self-care (01) ==
LOC: ULT 15:02
PROVIDERS: ATTEND Physician Assistant Medical
PROC: 0W9G30Z Drainage of Peritoneal Cavity with Drainage Device, Percutaneous Approach (ICD-10-PCS; principal; 2024-03-01)
DX: R18.8 Other ascites (principal); N18.9 Chronic kidney disease, unspecified
CPT/HCPCS: 49083

== ENCOUNTER 2024-03-23 07:40 | Day surgery (SDC) | payer MEDICARE, OTHER ==
[2024-03-23 09:56] LABS: ALT (SGPT) 5 U/L (8-55); AST (SGOT) 26 U/L (5-34); Albumin 3.2 g/dL (3.4-4.8); Alkaline Phosphatase 100 U/L (40-110); Anion Gap 13 mmol/L (10-20); BUN (Urea Nitrogen) 38 mg/dL (8.4-25.7); Calc. Creatinine Clearance 0 mL/min (70-130); Calcium 8.8 mg/dL (7.8-10.44); Carbon Dioxide 24 mmol/L (23-31); Chloride 101 mmol/L (98-107); Estimated GFR 32; Globulin 3.6 g/dL (2.4-3.5); Glucose 74 mg/dL (80-115); Potassium 4.3 mmol/L (3.5-5.1); Protein, Total 6.8 g/dL (5.8-8.1); Sodium 134 mmol/L (136-145)
== END 2024-03-23 09:50 | disposition home or self-care (01) ==
LOC: ULT 07:40
PROVIDERS: ATTEND Physician Assistant Medical
PROC: 0W9G30Z Drainage of Peritoneal Cavity with Drainage Device, Percutaneous Approach (ICD-10-PCS; principal; 2024-03-23)
DX: R18.8 Other ascites (principal); N18.9 Chronic kidney disease, unspecified
CPT/HCPCS: 49083; 80053

== ENCOUNTER 2024-03-30 13:17 | Day surgery (SDC) | payer MEDICARE, OTHER ==
[2024-03-30] MEDS ORDERED: Sodium Bicarbonate 2.5 MEQ/5 ML SDV ONE (14:26)
[2024-03-30] MEDS ORDERED: Lidocaine 1% PF 5 ML VIAL ONE (14:26)
== END 2024-03-30 15:45 | disposition home or self-care (01) ==
LOC: ULT 13:17
PROVIDERS: ATTEND Physician Assistant Medical
PROC: 0W9G30Z Drainage of Peritoneal Cavity with Drainage Device, Percutaneous Approach (ICD-10-PCS; principal; 2024-03-30)
DX: R18.8 Other ascites (principal)
CPT/HCPCS: 49083

== ENCOUNTER 2024-04-07 07:43 | Day surgery (SDC) | payer MEDICARE, OTHER ==
[2024-04-07] MEDS ORDERED: Lidocaine 1% PF 5 ML VIAL ONE (07:52)
[2024-04-07] MEDS ORDERED: Albumin 25% 200 ML ONE (07:52)
[2024-04-07] MEDS ORDERED: Sodium Bicarbonate 2.5 MEQ/5 ML SDV ONE (07:53)
[2024-04-07 10:09] VITALS: BP 111/78; TEMP 98.1
[2024-04-07 10:49] LABS: Anion Gap 17 mmol/L (10-20); BUN (Urea Nitrogen) 39 mg/dL (8.4-25.7); Calc. Creatinine Clearance 0 mL/min (70-130); Calcium 8.6 mg/dL (7.8-10.44); Carbon Dioxide 22 mmol/L (23-31); Chloride 101 mmol/L (98-107); Estimated GFR 34; Glucose 56 mg/dL (80-115); Potassium 3.8 mmol/L (3.5-5.1); Sodium 136 mmol/L (136-145)
== END 2024-04-07 10:10 | disposition home or self-care (01) ==
LOC: ULT 07:43
PROVIDERS: ATTEND Physician Assistant Medical
PROC: 0W9G3ZZ Drainage of Peritoneal Cavity, Percutaneous Approach (ICD-10-PCS; principal; 2024-04-07)
DX: R18.8 Other ascites (principal); N18.9 Chronic kidney disease, unspecified; Z88.5 Allergy status to narcotic agent
CPT/HCPCS: 49083; 80048; P9047

== ENCOUNTER → 2024-04-14 | Day surgery (SDC) | payer MEDICARE, OTHER ==
[~2024-04-14] MED LIST changes: +Albumin 25% 0 ML ONE
[2024-04-14 14:44] LABS: Anion Gap 16 mmol/L (10-20); BUN (Urea Nitrogen) 41 mg/dL (8.4-25.7); Calc. Creatinine Clearance 0 mL/min (70-130); Carbon Dioxide 20 mmol/L (23-31); Chloride 102 mmol/L (98-107); Estimated GFR 31; Glucose 158 mg/dL (80-115); Potassium 4.6 mmol/L (3.5-5.1); Sodium 133 mmol/L (136-145)
== END ==
LOC: ULT 12:31
PROVIDERS: ATTEND Physician Assistant Medical
PROC: 0W9G3ZZ Drainage of Peritoneal Cavity, Percutaneous Approach (ICD-10-PCS; principal; 2024-04-14)
DX: R18.8 Other ascites (principal); N18.9 Chronic kidney disease, unspecified; Z88.5 Allergy status to narcotic agent
CPT/HCPCS: 49083; 80048; P9047

== ENCOUNTER 2024-04-27 07:28 | Day surgery (SDC) | payer MEDICARE, OTHER ==
[2024-04-27] MEDS ORDERED: Lidocaine 1% PF 5 ML VIAL ONE (07:51)
[2024-04-27] MEDS ORDERED: Sodium Bicarbonate 2.5 MEQ/5 ML SDV ONE (07:51)
[2024-04-27] MEDS ORDERED: Albumin 25% 100 ML ONE ×2 (07:52→08:58)
[2024-04-27 08:35] LABS: #Basophils Less than 0.03 10x3/uL (0.0-0.2); #Eosinphils Less than 0.03 10x3/uL (0.0-0.7); %Basophils 0.1 % (0.0-1.0); %Eosinophils 0.1 % (0.0-10.0); %Lymphocytes 2.6 % (21.0-51.0); %Monocytes 6.4 % (0.0-10.0); %Neutrophils 90.2 % (42.0-75.0); Hematocrit 43.9 % (42.0-52.0); Hemoglobin 14.1 g/dL (14.0-18.0); Mean Corpuscular HGB CONC 32.1 g/dL (32.0-36.0); Mean Corpuscular Volume 87.1 fL (78.0-98.0); Mean Platelet Volume 9.2 fL (7.4-10.4); Platelet Count 196 10x3/uL (130-400); RBC Distribution Width 17.3 % (11.5-14.5); Red Blood Cell (RBC) Count 5.04 mill/uL (4.70-6.10)
[2024-04-27 08:53] LABS: Anion Gap 16 mmol/L (10-20); BUN (Urea Nitrogen) 56 mg/dL (8.4-25.7); Calc. Creatinine Clearance 0 mL/min (70-130); Calcium 8.2 mg/dL (7.8-10.44); Carbon Dioxide 21 mmol/L (23-31); Chloride 98 mmol/L (98-107); Estimated GFR 28; Glucose 71 mg/dL (80-115); Potassium 4.6 mmol/L (3.5-5.1); Sodium 130 mmol/L (136-145)
[2024-04-27 09:00] LABS: INR-International Normal Ratio 1.5; Prothrombin Time 18.3 sec (12.0-14.7)
== END 2024-04-27 09:55 | disposition home or self-care (01) ==
LOC: ULT 07:28
PROVIDERS: ATTEND Physician Assistant Medical
PROC: 0W9G30Z Drainage of Peritoneal Cavity with Drainage Device, Percutaneous Approach (ICD-10-PCS; principal; 2024-04-27)
DX: R18.8 Other ascites (principal); N18.9 Chronic kidney disease, unspecified
CPT/HCPCS: 49083; 80048; 85025; 85610; 85730; P9047

== ENCOUNTER 2024-05-25 10:12 | Day surgery (SDC) | payer MEDICARE, OTHER ==
[2024-05-25] MEDS ORDERED: Lidocaine 1% PF 5 ML VIAL ONE (10:41)
== END 2024-05-25 12:10 | disposition home or self-care (01) ==
LOC: ULT 10:12
PROVIDERS: ATTEND Physician Assistant Medical
PROC: 0W9G30Z Drainage of Peritoneal Cavity with Drainage Device, Percutaneous Approach (ICD-10-PCS; principal; 2024-05-25)
DX: R18.8 Other ascites (principal); N18.9 Chronic kidney disease, unspecified
CPT/HCPCS: 49083

== ENCOUNTER 2024-06-18 14:11 | Emergency (ER) | payer MEDICARE, OTHER ==
[2024-06-18 15:19] LABS: #Basophils 0.04 10x3/uL (0.0-0.2); %Basophils 0.5 % (0.0-1.0); %Eosinophils 0.9 % (0.0-10.0); %Lymphocytes 9.7 % (21.0-51.0); %Neutrophils 77.6 % (42.0-75.0); Hemoglobin 13.6 g/dL (14.0-18.0); Mean Corpuscular HGB CONC 31.6 g/dL (32.0-36.0); Mean Corpuscular Hemoglobin 29.1 pg (27.0-31.0); Mean Corpuscular Volume 92.1 fL (78.0-98.0); Mean Platelet Volume 8.9 fL (7.4-10.4); Platelet Count 193 10x3/uL (130-400); RBC Distribution Width 16.7 % (11.5-14.5); Red Blood Cell (RBC) Count 4.67 mill/uL (4.70-6.10)
[2024-06-18] MEDS ORDERED: HYDROcodone/Acetaminophen 5/325 mg Tablet ONE (15:21)
[2024-06-18 15:35] LABS: ALT (SGPT) 7 U/L (8-55); AST (SGOT) 18 U/L (5-34); Albumin 3.1 g/dL (3.4-4.8); Alkaline Phosphatase 127 U/L (40-110); Anion Gap 17 mmol/L (10-20); BUN (Urea Nitrogen) 32 mg/dL (8.4-25.7); Bilirubin, Total 1.4 mg/dL (0.2-1.2); Calc. Creatinine Clearance 0 mL/min (70-130); Calcium 8.4 mg/dL (7.8-10.44); Carbon Dioxide 22 mmol/L (23-31); Chloride 100 mmol/L (98-107); Estimated GFR 34; Globulin 3.3 g/dL (2.4-3.5); Glucose 83 mg/dL (80-115); Potassium 3.9 mmol/L (3.5-5.1); Protein, Total 6.4 g/dL (5.8-8.1); Sodium 135 mmol/L (136-145)
== END 2024-06-18 16:36 | disposition home or self-care (01) ==
LOC: ERS 14:11
DX: M10.9 Gout, unspecified (principal); I11.0 Hypertensive heart disease with heart failure; I50.9 Heart failure, unspecified; E11.9 Type 2 diabetes mellitus without complications
CPT/HCPCS: 36415; 80053; 83605; 84550; 85025; 87040

== ENCOUNTER 2024-06-22 10:37 | Day surgery (SDC) | payer MEDICARE, OTHER ==
[2024-06-22] MEDS ORDERED: Lidocaine 1% PF 5 ML VIAL ONE (10:48)
== END 2024-06-22 12:00 | disposition home or self-care (01) ==
LOC: ULT 10:37
PROVIDERS: ATTEND Physician Assistant Medical
PROC: 0W9G30Z Drainage of Peritoneal Cavity with Drainage Device, Percutaneous Approach (ICD-10-PCS; principal; 2024-06-22)
DX: R18.8 Other ascites (principal); N18.9 Chronic kidney disease, unspecified
CPT/HCPCS: 49083

== ENCOUNTER → 2024-06-29 | Day surgery (SDC) | payer MEDICARE, OTHER ==
[~2024-06-29] MED LIST changes: -Albumin 25% 0 ML ONE; -Albumin 25% 200 ML ONE
== END ==
LOC: ULT 07:20
PROVIDERS: ATTEND Physician Assistant Medical
PROC: 0W9G30Z Drainage of Peritoneal Cavity with Drainage Device, Percutaneous Approach (ICD-10-PCS; principal; 2024-06-29)
DX: R18.8 Other ascites (principal); N18.9 Chronic kidney disease, unspecified
CPT/HCPCS: 49083

== ENCOUNTER → 2024-07-06 | Day surgery (SDC) | payer MEDICARE, OTHER ==
[~2024-07-06] MED LIST changes: -Sodium Bicarbonate 2.5 MEQ/5 ML SDV ONE
[2024-07-06 12:51] LABS: Anion Gap 11 mmol/L (10-20); BUN (Urea Nitrogen) 45 mg/dL (8.4-25.7); Calc. Creatinine Clearance 0 mL/min (70-130); Calcium 8.6 mg/dL (7.8-10.44); Carbon Dioxide 29 mmol/L (23-31); Chloride 100 mmol/L (98-107); Estimated GFR 37; Glucose 104 mg/dL (80-115); Potassium 3.8 mmol/L (3.5-5.1); Sodium 136 mmol/L (136-145)
== END ==
LOC: ULT 10:27
PROVIDERS: ATTEND Physician Assistant Medical
PROC: 0W9G3ZZ Drainage of Peritoneal Cavity, Percutaneous Approach (ICD-10-PCS; principal; 2024-07-06)
DX: R18.8 Other ascites (principal)
CPT/HCPCS: 49083; 80048

== ENCOUNTER 2024-07-13 07:41 | Day surgery (SDC) | payer MEDICARE, OTHER ==
[2024-07-13] MEDS ORDERED: Sodium Bicarbonate 2.5 MEQ/5 ML SDV ONE (08:05)
[2024-07-13] MEDS ORDERED: Lidocaine 1% PF 5 ML VIAL ONE (08:05)
[2024-07-13] MEDS ORDERED: Albumin 25% 100 ML ONE (08:41)
== END 2024-07-13 09:45 | disposition home or self-care (01) ==
LOC: ULT 07:41
PROVIDERS: ATTEND Physician Assistant Medical
PROC: 0W9G3ZZ Drainage of Peritoneal Cavity, Percutaneous Approach (ICD-10-PCS; principal; 2024-07-13)
DX: R18.8 Other ascites (principal); N18.9 Chronic kidney disease, unspecified
CPT/HCPCS: 49083; P9047

== ENCOUNTER → 2024-07-19 | Day surgery (SDC) | payer MEDICARE, OTHER ==
[~2024-07-19] MED LIST changes: +Sodium Bicarbonate 2.5 MEQ/5 ML SDV ONE
[2024-07-19 15:33] LABS: #Basophils Less than 0.03 10x3/uL (0.0-0.2); %Basophils 0.3 % (0.0-1.0); %Eosinophils 0.6 % (0.0-10.0); %Monocytes 4.9 % (0.0-10.0); %Neutrophils 87.6 % (42.0-75.0); Hematocrit 41.8 % (42.0-52.0); Hemoglobin 12.9 g/dL (14.0-18.0); Mean Corpuscular HGB CONC 30.9 g/dL (32.0-36.0); Mean Corpuscular Hemoglobin 28.8 pg (27.0-31.0); Mean Corpuscular Volume 93.3 fL (78.0-98.0); Mean Platelet Volume 9.1 fL (7.4-10.4); Platelet Count 194 10x3/uL (130-400); RBC Distribution Width 15.2 % (11.5-14.5); Red Blood Cell (RBC) Count 4.48 mill/uL (4.70-6.10)
[2024-07-19 15:50] LABS: Anion Gap 13 mmol/L (10-20); BUN (Urea Nitrogen) 43 mg/dL (8.4-25.7); Calc. Creatinine Clearance 0 mL/min (70-130); Calcium 8.6 mg/dL (7.8-10.44); Carbon Dioxide 25 mmol/L (23-31); Chloride 101 mmol/L (98-107); Estimated GFR 30; Glucose 189 mg/dL (80-115); Potassium 4.9 mmol/L (3.5-5.1); Sodium 134 mmol/L (136-145)
[2024-07-19 15:54] LABS: INR-International Normal Ratio 1.3; Prothrombin Time 16.4 sec (12.0-14.7)
[2024-07-19 15:55] LABS: PTT 38.7 sec (22.9-36.1)
== END ==
LOC: ULT 14:39
PROVIDERS: ATTEND Physician Assistant Medical
PROC: 0W9G30Z Drainage of Peritoneal Cavity with Drainage Device, Percutaneous Approach (ICD-10-PCS; principal; 2024-07-19)
DX: R18.8 Other ascites (principal)
CPT/HCPCS: 49083; 80048; 85025; 85610; 85730

== ENCOUNTER 2024-07-28 08:03 | Day surgery (SDC) | payer MEDICARE, OTHER ==
[2024-07-28] MEDS ORDERED: Lidocaine 1% PF 5 ML VIAL ONE (08:51)
[2024-07-28] MEDS ORDERED: Sodium Bicarbonate 2.5 MEQ/5 ML SDV ONE (08:51)
== END 2024-07-28 10:00 | disposition home or self-care (01) ==
LOC: ULT 08:03
PROVIDERS: ATTEND Physician Assistant Medical
PROC: 0W9G30Z Drainage of Peritoneal Cavity with Drainage Device, Percutaneous Approach (ICD-10-PCS; principal; 2024-07-28)
DX: R18.8 Other ascites (principal)
CPT/HCPCS: 49083

== ENCOUNTER 2024-08-03 10:17 | Day surgery (SDC) | payer MEDICARE, OTHER ==
[2024-08-03] MEDS ORDERED: Sodium Bicarbonate 2.5 MEQ/5 ML SDV ONE (10:50)
[2024-08-03] MEDS ORDERED: Lidocaine 1% PF 5 ML VIAL ONE (10:50)
[2024-08-03 12:20] LABS: Anion Gap 14 mmol/L (10-20); BUN (Urea Nitrogen) 36 mg/dL (8.4-25.7); Calc. Creatinine Clearance 0 mL/min (70-130); Calcium 8.1 mg/dL (7.8-10.44); Carbon Dioxide 24 mmol/L (23-31); Chloride 103 mmol/L (98-107); Estimated GFR 33; Glucose 72 mg/dL (80-115); Potassium 3.7 mmol/L (3.5-5.1); Sodium 137 mmol/L (136-145)
== END 2024-08-03 12:00 | disposition home or self-care (01) ==
LOC: ULT 10:17
PROVIDERS: ATTEND Physician Assistant Medical
PROC: 0W9G30Z Drainage of Peritoneal Cavity with Drainage Device, Percutaneous Approach (ICD-10-PCS; principal; 2024-08-03)
DX: R18.8 Other ascites (principal)
CPT/HCPCS: 49083; 80048

== ENCOUNTER 2024-08-10 08:01 | Day surgery (SDC) | payer MEDICARE, OTHER ==
[2024-08-10] MEDS ORDERED: Sodium Bicarbonate 2.5 MEQ/5 ML SDV ONE (08:13)
[2024-08-10] MEDS ORDERED: Lidocaine 1% PF 5 ML VIAL ONE (08:13)
== END 2024-08-10 09:40 | disposition home or self-care (01) ==
LOC: ULT 08:01
PROVIDERS: ATTEND Physician Assistant Medical
PROC: 0W9G3ZZ Drainage of Peritoneal Cavity, Percutaneous Approach (ICD-10-PCS; principal; 2024-08-10)
DX: R18.8 Other ascites (principal)
CPT/HCPCS: 49083

== ENCOUNTER → 2024-08-17 | Day surgery (SDC) | payer MEDICARE, OTHER ==
[~2024-08-17] MED LIST changes: -Sodium Bicarbonate 2.5 MEQ/5 ML SDV ONE
[2024-08-17 11:30] LABS: #Basophils 0.11 10x3/uL (0.0-0.2); %Basophils 1.8 % (0.0-1.0); %Eosinophils 3.2 % (0.0-10.0); %Monocytes 13.4 % (0.0-10.0); %Neutrophils 69.3 % (42.0-75.0); Hemoglobin 12.8 g/dL (14.0-18.0); Mean Corpuscular HGB CONC 31.2 g/dL (32.0-36.0); Mean Corpuscular Hemoglobin 28.8 pg (27.0-31.0); Mean Corpuscular Volume 92.1 fL (78.0-98.0); Mean Platelet Volume 8.8 fL (7.4-10.4); Platelet Count 214 10x3/uL (130-400); RBC Distribution Width 14.7 % (11.5-14.5); Red Blood Cell (RBC) Count 4.45 mill/uL (4.70-6.10)
[2024-08-17 11:48] LABS: Anion Gap 12 mmol/L (10-20); BUN (Urea Nitrogen) 23 mg/dL (8.4-25.7); Calc. Creatinine Clearance 0 mL/min (70-130); Calcium 8.4 mg/dL (7.8-10.44); Carbon Dioxide 25 mmol/L (23-31); Chloride 101 mmol/L (98-107); Estimated GFR 38; Glucose 66 mg/dL (80-115); Potassium 3.6 mmol/L (3.5-5.1); Sodium 134 mmol/L (136-145)
[2024-08-17 11:49] LABS: INR-International Normal Ratio 1.2; Prothrombin Time 15.6 sec (12.0-14.7)
[2024-08-17 11:50] LABS: PTT 41.3 sec (22.9-36.1)
== END ==
LOC: ULT 10:10
PROVIDERS: ATTEND Physician Assistant Medical
PROC: 0W9G3ZZ Drainage of Peritoneal Cavity, Percutaneous Approach (ICD-10-PCS; principal; 2024-08-17)
DX: R18.8 Other ascites (principal)
CPT/HCPCS: 49083; 80048; 85025; 85610; 85730

== ENCOUNTER 2024-08-24 07:55 | Day surgery (SDC) | payer MEDICARE, OTHER ==
[~2024-08-24 07:55] MED LIST changes: +Sodium Bicarbonate 2.5 MEQ/5 ML SDV ONE
== END 2024-08-24 09:00 | disposition home or self-care (01) ==
LOC: ULT 07:55
PROVIDERS: ATTEND Physician Assistant Medical
PROC: 0W9G30Z Drainage of Peritoneal Cavity with Drainage Device, Percutaneous Approach (ICD-10-PCS; principal; 2024-08-24)
DX: R18.8 Other ascites (principal); N18.9 Chronic kidney disease, unspecified; Z88.5 Allergy status to narcotic agent
CPT/HCPCS: 49083

== ENCOUNTER 2024-08-30 09:00 | Day surgery (SDC) | payer MEDICARE, OTHER ==
[2024-08-30] MEDS ORDERED: Lidocaine 1% PF 5 ML VIAL ONE (10:17)
[2024-09-11 06:35] LABS: Anion Gap 15 mmol/L (10-20); BUN (Urea Nitrogen) 26 mg/dL (8.4-25.7); Calc. Creatinine Clearance 0 mL/min (70-130); Carbon Dioxide 23 mmol/L (23-31); Chloride 103 mmol/L (98-107); Estimated GFR 34; Potassium 3.6 mmol/L (3.5-5.1); Sodium 137 mmol/L (136-145)
[2024-09-11 06:36] LABS: Calcium 8.4 mg/dL (7.6-10.4); Glucose 73 mg/dL (80-115)
== END 2024-08-30 13:00 | disposition home or self-care (01) ==
LOC: ULT 09:00
PROVIDERS: ATTEND Physician Assistant Medical
PROC: 0W9G3ZZ Drainage of Peritoneal Cavity, Percutaneous Approach (ICD-10-PCS; principal; 2024-08-30)
DX: R18.8 Other ascites (principal)
CPT/HCPCS: 36415; 49083; 80048

== ENCOUNTER 2024-09-07 07:53 | Day surgery (SDC) | payer MEDICARE, OTHER ==
[2024-09-07] MEDS ORDERED: Sodium Bicarbonate 2.5 MEQ/5 ML SDV ONE (08:22)
[2024-09-07] MEDS ORDERED: Lidocaine 1% PF 5 ML VIAL ONE (08:22)
[2024-09-07 09:13] VITALS: BP 111/67; TEMP 97.9
== END 2024-09-07 10:00 | disposition home or self-care (01) ==
LOC: ULT 07:53
PROVIDERS: ATTEND Physician Assistant Medical
PROC: 0W9G30Z Drainage of Peritoneal Cavity with Drainage Device, Percutaneous Approach (ICD-10-PCS; principal; 2024-09-07)
DX: R18.8 Other ascites (principal); N18.9 Chronic kidney disease, unspecified
CPT/HCPCS: 49083

== ENCOUNTER → 2024-09-14 | Day surgery (SDC) | payer MEDICARE, OTHER ==
[~2024-09-14] MED LIST changes: +Albumin 25% 100 ML ONE; -Sodium Bicarbonate 2.5 MEQ/5 ML SDV ONE
[2024-09-14 15:39] LABS: #Basophils 0.09 10x3/uL (0.0-0.2); %Basophils 1.5 % (0.0-1.0); %Lymphocytes 10.6 % (21.0-51.0); %Monocytes 14.5 % (0.0-10.0); %Neutrophils 67.9 % (42.0-75.0); Hematocrit 42.6 % (42.0-52.0); Hemoglobin 13.2 g/dL (14.0-18.0); Mean Corpuscular Volume 90.3 fL (78.0-98.0); Mean Platelet Volume 9.2 fL (7.4-10.4); Platelet Count 207 10x3/uL (130-400); RBC Distribution Width 14.9 % (11.5-14.5); Red Blood Cell (RBC) Count 4.72 mill/uL (4.70-6.10)
[2024-09-14 15:56] LABS: Anion Gap 15 mmol/L (10-20); BUN (Urea Nitrogen) 30 mg/dL (8.4-25.7); Calc. Creatinine Clearance 0 mL/min (70-130); Calcium 8.5 mg/dL (7.8-10.44); Carbon Dioxide 24 mmol/L (23-31); Chloride 100 mmol/L (98-107); Estimated GFR 37; Glucose 74 mg/dL (80-115); Potassium 3.8 mmol/L (3.5-5.1); Sodium 135 mmol/L (136-145)
[2024-09-14 15:58] LABS: INR-International Normal Ratio 1.4; Prothrombin Time 17.3 sec (12.0-14.7)
== END ==
LOC: ULT 10:10
PROVIDERS: ATTEND Physician Assistant Medical
PROC: 0W9G30Z Drainage of Peritoneal Cavity with Drainage Device, Percutaneous Approach (ICD-10-PCS; principal; 2024-09-14)
DX: R18.8 Other ascites (principal)
CPT/HCPCS: 49083; 80048; 85025; 85610; 85730; P9047

== ENCOUNTER → 2024-09-21 | Day surgery (SDC) | payer MEDICARE, OTHER ==
[~2024-09-21] MED LIST changes: -Albumin 25% 100 ML ONE; +Sodium Bicarbonate 2.5 MEQ/5 ML SDV ONE
== END ==
LOC: ULT 07:36
PROVIDERS: ATTEND Physician Assistant Medical
PROC: 0W9G30Z Drainage of Peritoneal Cavity with Drainage Device, Percutaneous Approach (ICD-10-PCS; principal; 2024-09-21)
DX: R18.8 Other ascites (principal); N18.9 Chronic kidney disease, unspecified
CPT/HCPCS: 49083

== ENCOUNTER 2024-09-28 09:52 | Day surgery (SDC) | payer MEDICARE, OTHER ==
[2024-09-28] MEDS ORDERED: Sodium Bicarbonate 2.5 MEQ/5 ML SDV ONE (09:55)
[2024-09-28] MEDS ORDERED: Lidocaine 1% PF 5 ML VIAL ONE (09:55)
[2024-09-28 10:56] LABS: Anion Gap 13 mmol/L (10-20); BUN (Urea Nitrogen) 29 mg/dL (8.4-25.7); Calc. Creatinine Clearance 0 mL/min (70-130); Calcium 8.3 mg/dL (7.8-10.44); Carbon Dioxide 23 mmol/L (23-31); Chloride 102 mmol/L (98-107); Estimated GFR 36; Glucose 68 mg/dL (80-115); Potassium 3.4 mmol/L (3.5-5.1); Sodium 135 mmol/L (136-145)
== END 2024-09-28 12:00 | disposition home or self-care (01) ==
LOC: ULT 09:52
PROVIDERS: ATTEND Physician Assistant Medical
PROC: 0W9G30Z Drainage of Peritoneal Cavity with Drainage Device, Percutaneous Approach (ICD-10-PCS; principal; 2024-09-28)
DX: R18.8 Other ascites (principal)
CPT/HCPCS: 49083; 80048

== ENCOUNTER → 2024-10-05 | Day surgery (SDC) | payer MEDICARE, OTHER | LOC: ULT 07:51 | PROVIDERS: ATTEND Physician Assistant Medical | PROC: 0W9G30Z Drainage of Peritoneal Cavity with Drainage Device, Percutaneous Approach (ICD-10-PCS; principal; 2024-10-05) | DX: R18.8 Other ascites (principal); Z88.5 Allergy status to narcotic agent | CPT/HCPCS: 49083 ==

== ENCOUNTER 2024-10-12 10:25 | Day surgery (SDC) | payer MEDICARE, OTHER ==
[2024-10-12] MEDS ORDERED: Albumin 25% 100 ML ONE (10:50)
[2024-10-12] MEDS ORDERED: Lidocaine 1% PF 5 ML VIAL ONE (10:50)
[2024-10-12 13:02] LABS: Anion Gap 12 mmol/L (10-20); Carbon Dioxide 22 mmol/L (23-31); Chloride 104 mmol/L (98-107); Glucose 101 mg/dL (80-115); Potassium 3.8 mmol/L (3.5-5.1); Sodium 134 mmol/L (136-145)
[2024-10-12 13:03] LABS: BUN (Urea Nitrogen) 27 mg/dL (8.4-25.7)
[2024-10-12 14:01] LABS: Calc. Creatinine Clearance 0 mL/min (70-130); Estimated GFR 33
[2024-10-12 16:03] LABS: RBC Count-Automated (BF) 1833 /cu.mm; WBC/Nucleated-Auto (BF) 204 /cu.mm
[2024-10-12 16:04] LABS: BF Color Yellow; Body Fluid Source Ascites Body Fluid; Clarity Hazy (Clear); Tube # EDTA
[2024-10-12 16:28] LABS: BF Segmented Neutrophils 15 %; Cell Count Non Hematic 47 %; Lymphocytes 38 %
== END 2024-10-12 12:45 | disposition home or self-care (01) ==
LOC: ULT 10:25
PROVIDERS: ATTEND Physician Assistant Medical
PROC: 0W9G30Z Drainage of Peritoneal Cavity with Drainage Device, Percutaneous Approach (ICD-10-PCS; principal; 2024-10-12)
DX: R18.8 Other ascites (principal); N18.9 Chronic kidney disease, unspecified; R77.0 Abnormality of albumin; Z88.5 Allergy status to narcotic agent
CPT/HCPCS: 49083; 80048; 82042; 84157; 87070; 87205; 89051; P9047; 85060

== ENCOUNTER 2024-10-19 07:43 | Day surgery (SDC) | payer MEDICARE, OTHER | END 2024-10-19 09:50 | disposition home or self-care (01) | LOC: ULT 07:43 | PROVIDERS: ATTEND Physician Assistant Medical | PROC: 0W9G30Z Drainage of Peritoneal Cavity with Drainage Device, Percutaneous Approach (ICD-10-PCS; principal; 2024-10-19) | DX: R18.8 Other ascites (principal); Z88.5 Allergy status to narcotic agent | CPT/HCPCS: 49083 ==

== ENCOUNTER → 2024-11-02 | Day surgery (SDC) | payer MEDICARE, OTHER | LOC: ULT 07:45 | PROVIDERS: ATTEND Physician Assistant Medical | PROC: 0W9G30Z Drainage of Peritoneal Cavity with Drainage Device, Percutaneous Approach (ICD-10-PCS; principal; 2024-11-02) | DX: R18.8 Other ascites (principal); K21.9 Gastro-esophageal reflux disease without esophagitis; I13.0 Hypertensive heart and chronic kidney disease with heart failure and stage 1 through stage 4 chronic kidney disease, or unspecified chronic kidney disease; N18.9 Chronic kidney disease, unspecified; I50.9 Heart failure, unspecified; I25.10 Atherosclerotic heart disease of native coronary artery without angina pectoris; E11.22 Type 2 diabetes mellitus with diabetic chronic kidney disease; E78.00 Pure hypercholesterolemia, unspecified; Z79.01 Long term (current) use of anticoagulants; Z79.899 Other long term (current) drug therapy | CPT/HCPCS: 49083 ==

== ENCOUNTER 2024-11-16 07:40 | Day surgery (SDC) | payer MEDICARE, OTHER ==
[2024-11-16] MEDS ORDERED: Sodium Bicarbonate 2.5 MEQ/5 ML SDV ONE (08:29)
[2024-11-16] MEDS ORDERED: Lidocaine 1% PF 5 ML VIAL ONE ×2 (08:29→09:22)
== END 2024-11-16 10:10 | disposition home or self-care (01) ==
LOC: ULT 07:40
PROVIDERS: ATTEND Physician Assistant Medical
PROC: 0W9G3ZZ Drainage of Peritoneal Cavity, Percutaneous Approach (ICD-10-PCS; principal; 2024-11-16)
DX: I13.0 Hypertensive heart and chronic kidney disease with heart failure and stage 1 through stage 4 chronic kidney disease, or unspecified chronic kidney disease (principal); I50.810 Right heart failure, unspecified; N18.9 Chronic kidney disease, unspecified; K21.9 Gastro-esophageal reflux disease without esophagitis; I25.10 Atherosclerotic heart disease of native coronary artery without angina pectoris; E78.00 Pure hypercholesterolemia, unspecified; Z87.891 Personal history of nicotine dependence; Z88.5 Allergy status to narcotic agent; Z79.890 Hormone replacement therapy; Z79.01 Long term (current) use of anticoagulants; Z79.84 Long term (current) use of oral hypoglycemic drugs; Z79.899 Other long term (current) drug therapy
CPT/HCPCS: 49083

== ENCOUNTER 2024-11-17 04:02 | Emergency (ER) | payer MEDICARE, OTHER ==
[2024-11-17 04:35] LABS: #Basophils Less than 0.03 10x3/uL (0.0-0.2); %Basophils 0.1 % (0.0-1.0); %Eosinophils 0.4 % (0.0-10.0); %Lymphocytes 3.6 % (21.0-51.0); %Monocytes 8.2 % (0.0-10.0); %Neutrophils 87.2 % (42.0-75.0); Hematocrit 43.3 % (42.0-52.0); Hemoglobin 13.8 g/dL (14.0-18.0); Mean Corpuscular HGB CONC 31.9 g/dL (32.0-36.0); Mean Corpuscular Hemoglobin 27.8 pg (27.0-31.0); Mean Corpuscular Volume 87.1 fL (78.0-98.0); Mean Platelet Volume 9.1 fL (7.4-10.4); Platelet Count 215 10x3/uL (130-400); RBC Distribution Width 16.7 % (11.5-14.5); Red Blood Cell (RBC) Count 4.97 mill/uL (4.70-6.10)
[2024-11-17 04:54] LABS: INR-International Normal Ratio 1.4; Prothrombin Time 16.8 sec (12.0-14.7)
[2024-11-17 04:55] LABS: PTT 37.6 sec (22.9-36.1)
[2024-11-17 05:01] LABS: ALT (SGPT) 8 U/L (Less than 45); AST (SGOT) 27 U/L (11-34); Albumin 2.7 g/dL (3.1-4.5); Alkaline Phosphatase 115 U/L (40-110); Anion Gap 15 mmol/L (10-20); BUN (Urea Nitrogen) 44 mg/dL (8.4-25.7); Bilirubin, Total 0.9 mg/dL (0.3-1.2); Calc. Creatinine Clearance 0 mL/min (70-130); Carbon Dioxide 23 mmol/L (23-31); Chloride 101 mmol/L (98-107); Estimated GFR 30; Globulin 3.3 g/dL (2.4-3.5); Glucose 195 mg/dL (80-115); Potassium 4.4 mmol/L (3.5-5.1); Sodium 135 mmol/L (136-145)
== END 2024-11-17 05:32 | disposition home or self-care (01) ==
LOC: ERS 04:02
DX: G89.18 Other acute postprocedural pain (principal); R11.0 Nausea; I11.0 Hypertensive heart disease with heart failure; I50.9 Heart failure, unspecified; E11.22 Type 2 diabetes mellitus with diabetic chronic kidney disease; E03.9 Hypothyroidism, unspecified; Z55.6 Problems related to health literacy; Z79.01 Long term (current) use of anticoagulants; Z79.899 Other long term (current) drug therapy
CPT/HCPCS: 80053; 85025; 85610; 85730; 99283

== ENCOUNTER 2025-01-25 10:21 | Day surgery (SDC) | payer MEDICARE, OTHER ==
[2025-01-25] MEDS ORDERED: Sodium Bicarbonate 2.5 MEQ/5 ML SDV ONE (10:56)
[2025-01-25] MEDS ORDERED: Lidocaine 1% PF 5 ML VIAL ONE (10:56)
[2025-01-25 12:32] LABS: Anion Gap 12 mmol/L (10-20); BUN (Urea Nitrogen) 36 mg/dL (8.4-25.7); Calc. Creatinine Clearance 0 mL/min (70-130); Calcium 8.3 mg/dL (7.8-10.44); Carbon Dioxide 25 mmol/L (23-31); Chloride 100 mmol/L (98-107); Estimated GFR 30; Glucose 130 mg/dL (80-115); Potassium 4.5 mmol/L (3.5-5.1); Sodium 132 mmol/L (136-145)
== END 2025-01-25 12:45 | disposition home or self-care (01) ==
LOC: ULT 10:21
PROVIDERS: ATTEND Physician Assistant Medical
PROC: 0W9G3ZZ Drainage of Peritoneal Cavity, Percutaneous Approach (ICD-10-PCS; principal; 2025-01-25)
DX: I13.0 Hypertensive heart and chronic kidney disease with heart failure and stage 1 through stage 4 chronic kidney disease, or unspecified chronic kidney disease (principal); I50.810 Right heart failure, unspecified; N18.9 Chronic kidney disease, unspecified; I25.10 Atherosclerotic heart disease of native coronary artery without angina pectoris; E11.22 Type 2 diabetes mellitus with diabetic chronic kidney disease; K21.9 Gastro-esophageal reflux disease without esophagitis; Z87.891 Personal history of nicotine dependence; Z79.890 Hormone replacement therapy; Z79.01 Long term (current) use of anticoagulants; Z79.84 Long term (current) use of oral hypoglycemic drugs; Z79.899 Other long term (current) drug therapy
CPT/HCPCS: 49083; 80048